=== PATIENT | female | born 1940 | race Caucasian/White ===

== ENCOUNTER → 2021-03-01 | Outpatient (CLI) | payer MEDICARE ==
[~2021-03-01] MED LIST: ASPI325 PO; ATOR80 PO; CLOP75 PO; HYDCHL12.5 PO; METF500 PO; Norco 5-325 Ta1 EACH PO; PANT20 PO; PIOG45 PO; Prinivil10 MG PO; RAMI2.5 PO; TRIHYD PO; Ultram50 MG PO
[2021-03-01 11:07] LABS: Source, Urine Clean Catch
[2021-03-01 13:02] LABS: Appearance, Urine Hazy (Clear); Bilirubin, Urine Neg (Neg); Blood, Urine 1+ (Neg); Color, Urine Yellow (P-Yellow); Glucose Qualitative, Urine Neg (Neg); Ketones, Urine Neg (Neg); Leukocyte Esterase, Urine 1+ (Neg); Nitrite, Urine Pos (Neg); Protein, Urine Neg (Neg); Specific Gravity, Urine 1.015 (1.003-1.022); Urobilinogen, Urine NORM (Normal)
[2021-03-01 13:32] LABS: Bacteria Many /hpf; Red Blood Cells, Urine 0-2 /hpf (0-2); Squamous Epithelial Cells Few /hpf (Few)
== END | disposition home or self-care (01) ==
LOC: LAB SHORT 11:05 → LAB 11:05
PROVIDERS: Family Medicine
DX: R30.9 Painful micturition, unspecified (principal)
CPT/HCPCS: 81001; 87077; 87086; 87186

== ENCOUNTER → 2022-07-28 | Outpatient (CLI) | payer MEDICARE | LOC: LAB SHORT 11:42 → LAB 11:42 → LAB FUT 07-28 11:55 | DX: N39.0 Urinary tract infection, site not specified (principal) | CPT/HCPCS: 87077; 87086; 87186 ==

== ENCOUNTER 2022-08-14 11:56 | Inpatient (IN) | payer MEDICARE ==
[~2022-08-14] VITALS: Ht 170.2 cm; Wt 63.5 kg
[2022-08-14 13:19] LABS: BASOPHILS ABSOLUTE AUTO 0.03 K/mm3 (0.00-0.23); BASOPHILS PERCENT AUTO 0 % (0-2); EOSINOPHILS ABSOLUTE AUTO 0.01 K/mm3 (0.00-0.68); EOSINOPHILS PERCENT AUTO 0 % (0-6); Hematocrit 20.6 % (33.0-51.0); Hemoglobin 6.3 g/dL (11.5-16.0); IMMATURE GRAN ABSOLUTE AUTO 0.19 K/mm3 (0.00-0.10); IMMATURE GRAN PERCENT AUTO 1 % (0-1); LYMPHOCYTES ABSOLUTE AUTO 0.97 K/mm3 (0.84-5.20); LYMPHOCYTES PERCENT AUTO 5 % (21-46); MONOCYTES ABSOLUTE AUTO 0.82 K/mm3 (0.16-1.47); MONOCYTES PERCENT AUTO 4 % (4-13); Mean Corpuscular HGB 32.3 pg (26.0-34.0); Mean Corpuscular HGB Conc 30.6 g/dL (31.5-36.5); Mean Corpuscular Volume 106 fL (80-100); Mean Platelet Volume 10.1 fL (9.1-12.4); NEUTROPHILS ABSOLUTE AUTO 17.83 K/mm3 (1.96-9.15); NEUTROPHILS PERCENT AUTO 90 % (41-73); NRBC ABSOLUTE 0.08 K/mm3 (0.00-0.02); NRBC Auto 0.4 /100 WBC (0.0-0.2); Platelet Count 418 K/mm3 (150-400); RDW Coefficient Variation 16.1 % (11.7-14.2); Red Blood Cell Count 1.95 M/mm3 (3.80-5.20); White Blood Cell Count 19.85 K/mm3 (4.00-11.30)
[2022-08-14 13:37] LABS: Albumin, Blood 2.2 g/dL (3.4-5.0); Albumin/Globulin Ratio 0.4 (0.8-1.8); Bilirubin, Total 0.5 mg/dL (0.1-1.0); Bun/Creatinine Ratio 34.3 (12.0-20.0); Calcium, Blood 8.6 mg/dL (8.5-10.1); Creatinine, Blood 1.34 mg/dL (0.40-1.00); Potassium, Blood 3.7 mmol/L (3.5-5.5); Total Protein, Blood 7.2 g/dL (6.4-8.2)
[2022-08-14 15:10] LABS: Source, Urine Straight Cath
[2022-08-14 15:15] LABS: Appearance, Urine Hazy (Clear); Bilirubin, Urine Neg (Neg); Blood, Urine 1+ (Neg); Color, Urine Yellow (P-Yellow); Glucose Qualitative, Urine Neg (Neg); Ketones, Urine Neg (Neg); Leukocyte Esterase, Urine 2+ (Neg); Nitrite, Urine Neg (Neg); Protein, Urine 1+ (Neg); Specific Gravity, Urine 1.015 (1.003-1.022); Urobilinogen, Urine NORM (Normal)
[2022-08-14 16:05] LABS: Bacteria Many /hpf; Hyaline Casts 0-2 /lpf (0-2); Squamous Epithelial Cells Mod /hpf (Few); WBC Cast 0-2 /lpf (0); White Blood Cells, Urine 25-50 /hpf (0-5)
[2022-08-14 17:02] LABS: Influenza B, PCR NEGATIVE (NEGATIVE); Resp Syncytial Virus, PCR NEGATIVE (NEGATIVE); SARS-Cov-2 (COVID-19) PCR, MMC NEGATIVE (NEGATIVE)
[2022-08-14 22:47] LABS: Influenza A, PCR POSITIVE (NEGATIVE)
--- NOTE | 2022-08-14 23:47 | NUR ---
Unable to complete admission assessment due to patient mental status.
--- NOTE | 2022-08-15 03:56 | NUR ---
Patient resting in bed at this time, refused assessment, refused vitals, completely uncooperative with care.
[2022-08-15 06:02] LABS: Hematocrit 20.3 % (33.0-51.0); Mean Corpuscular HGB 32.1 pg (26.0-34.0); Mean Corpuscular HGB Conc 29.6 g/dL (31.5-36.5); Mean Corpuscular Volume 109 fL (80-100); Mean Platelet Volume 10.2 fL (9.1-12.4); NRBC ABSOLUTE 0.07 K/mm3 (0.00-0.02); NRBC Auto 0.4 /100 WBC (0.0-0.2); Platelet Count 422 K/mm3 (150-400); RDW Coefficient Variation 16.5 % (11.7-14.2); RDW Standard Deviation 61.4 fL (35.1-46.3); Red Blood Cell Count 1.87 M/mm3 (3.80-5.20); White Blood Cell Count 16.42 K/mm3 (4.00-11.30)
[2022-08-15 08:39] LABS: Bun/Creatinine Ratio 36.9 (12.0-20.0); Calcium, Blood 8.8 mg/dL (8.5-10.1); Creatinine, Blood 1.3 mg/dL (0.40-1.00); Potassium, Blood 4.9 mmol/L (3.5-5.5)
--- NOTE | 2022-08-15 17:38 | NUR ---
Pt resting able to make a few statements during conversation. Review of pt needs and potential for suffering and support form hospice and they felt it best choice. They have a hospital bed at home, reviewed putting a jett in patient for enhanced comfort and to reduce pain. Review of choice of hospice agencies and offered review of choice letter they expressed no preferance. updated care managers. Review of who will be careing for her at home family will care for her some concern about toileting. Will update phsyician on jett for pt comfort and to reduce apin and trauma. They want to [place] to go home tomorrow.
--- NOTE | 2022-08-15 17:59 | NUR ---
SHIFT SUMMARY: PT ALERT AND ORIENTED X0-1. PT HAS HIGH ANXIETY WHEN AWAKE AND CAN BE COMBATIVE WITH CARE. DR. OSPINA TALKED TO PT, SON, AND DAUGHTER IN LAW ABOUT TRANSITIONING FROM DNR TO COMFORT CARE. FAMILY AGREED TO CHANGE. DAUGHTER IN LAW WAS HERE DURING THE NIGHT AND MORNING TO HELP CARE FOR PT AND PROVIDE HER WITH A FAMILIAR FACE. PT HAS 2 PRESSURE SORES ON BOTTOM. ROTATING PT Q2 HRS. PT ONLY EATING SOFT FOODS AND DRINKING JUICE. CALL LIGHT IN REACH. WILL CONTINUE TO MONITOR.
[2022-08-15 23:00] LABS: Source, Urine Foley catheter
[2022-08-15 23:21] LABS: Appearance, Urine Cloudy (Clear); Bilirubin, Urine Neg (Neg); Blood, Urine 2+ (Neg); Color, Urine Yellow (P-Yellow); Glucose Qualitative, Urine Neg (Neg); Ketones, Urine Neg (Neg); Leukocyte Esterase, Urine 2+ (Neg); Nitrite, Urine Neg (Neg); Protein, Urine 1+ (Neg); Specific Gravity, Urine 1.015 (1.003-1.022); Urobilinogen, Urine NORM (Normal)
[2022-08-16 00:27] LABS: Bacteria Many /hpf; Squamous Epithelial Cells Mod /hpf (Few)
--- NOTE | 2022-08-16 05:37 | NUR ---
RESIDENTIAL LIFE DIRECTOR SUMMARY PT ON COMFORT CARE; Q4 COMFORT CARE ASSESSMENTS DONE T/O THE SHIFT. PT RESPONDS TO VERBAL OR PAINFUL STIMULI. [id number] AT BEDSIDE T/O THE SHIFT; PT ORIENTED TO SELF AND FAMILY. PT CONT T/TAKE FLUIDS IN ORALLY BUT NOTED INCREASED COUGHING AFTER INTAKE. AUDIBLE RATTLE; PT ABLE TO CLEAR THROAT WITH DIFFICULTY. JOHNS CATHETER PLACED P/ORDER TO AID PT COMFORT. PRE MED W/ATIVAN TO DIMINISH AGITATION. PT TOLERATED PLACEMENT FAIRLY WELL; SOME AGITATION FOLLOWING. JOHNS PATENT AND DRAINING TO GRAVITY. COVERED SMALL BLEEDING PRESSURE SORE WITH MEPILEX. PT HAD DIFFICULTY SETTLING/SLEEPING; PERIODIC AGITATION AND NOTED INCREASED WORK AT BREATHING. MEDS P/EMAR WITH ATIVAN AND ROXANOL. FAMILY CALLS F/ASSISTANCE W/PT APPROPRIATELY. CALL LIGHT ACCESSIBLE. PT BED LOCKED/LOW. WILL CONT T/MONITOR.
[2022-08-16] MEDS ORDERED: ACET120S PR (08:48)
[2022-08-16] MEDS ORDERED: TYLENOL PO (08:52)
[2022-08-16] MEDS ORDERED: ATROPINE S0.1 MG/1 M SL (08:53)
[2022-08-16] MEDS ORDERED: HALOPERIDOL2 MG/1 ML PO (08:55)
[2022-08-16] MEDS ORDERED: Ativan1 MG PO (08:56)
[2022-08-16] MEDS ORDERED: MORP20L SL (08:57)
[2022-08-16] MEDS ORDERED: PHENERGAN25 MG PR (08:58)
[2022-08-16] MEDS ORDERED: ONDA4ODT MM (08:58)
[2022-08-16] MEDS ORDERED: PROMETHAZINE12.5 M1 PO (08:59)
[2022-08-16] MEDS ORDERED: QUET100 PO (08:59)
[2022-08-16] MEDS ORDERED: TRANSDERM-SCOP1 EA10 TD (09:00)
--- NOTE | 2022-08-16 10:42 | NUR ---
Pt discharge home to hospice. Family at bedside and all belongings given to family. EMS arrived at 1030.
== END 2022-08-16 10:36 | disposition hospice, home (50) | DRG 871 ==
LOC: ER 11:56 → MEDS 17:11
PROVIDERS: Emergency Medicine; Internal Medicine; Student in an Organized Health Care Education/Training Program; ADMIT Internal Medicine
DX: A41.51 Sepsis due to Escherichia coli [E. coli] (principal); J18.9 Pneumonia, unspecified organism; J96.01 Acute respiratory failure with hypoxia; N39.0 Urinary tract infection, site not specified; F03.C11 Unspecified dementia, severe, with agitation; Z66 Do not resuscitate; Z51.5 Encounter for palliative care; I12.9 Hypertensive chronic kidney disease with stage 1 through stage 4 chronic kidney disease, or unspecified chronic kidney disease; N18.30 Chronic kidney disease, stage 3 unspecified; D63.1 Anemia in chronic kidney disease; E11.22 Type 2 diabetes mellitus with diabetic chronic kidney disease; Z86.73 Personal history of transient ischemic attack (TIA), and cerebral infarction without residual deficits; Z79.02 Long term (current) use of antithrombotics/antiplatelets; Z79.82 Long term (current) use of aspirin; Z79.84 Long term (current) use of oral hypoglycemic drugs; Z79.899 Other long term (current) drug therapy
CPT/HCPCS: 0241U; 36415; 51701; 71045; 80048; 80053; 81001; 83605; 85025; 85027; 86850; 86900; 86901; 87040; 87077; 87086; 87186; 93005; 93010; 96365-59; 96366-59; 96372-59; 96375-59; 99285-25; A9270; J0456; J0696; J1630; J2060; J7030; J7050